=== PATIENT | male | born 1950 | race Caucasian/White ===

== ENCOUNTER → 2024-05-04 10:34 | Outpatient (REF) | payer MEDICARE, SELFPAY | LOC: RAD 10:34 | PROVIDERS: ATTENDING PHYSICIAN Family Medicine | DX: I70.90 Unspecified atherosclerosis (principal); R06.02 Shortness of breath | CPT/HCPCS: 93970 ==

== ENCOUNTER → 2024-05-30 13:49 | Outpatient (REF) | payer MEDICARE, SELFPAY | LOC: RAD 13:49 | PROVIDERS: ATTENDING PHYSICIAN Family Medicine | DX: I73.9 Peripheral vascular disease, unspecified (principal) | CPT/HCPCS: 93922; 93925 ==

== ENCOUNTER → 2024-07-19 12:42 | Outpatient (REF) | payer MEDICARE, SELFPAY | LOC: RAD 12:42 | PROVIDERS: ATTENDING PHYSICIAN Family Medicine; REFERRING PHYSICIAN Nuclear Medicine Nuclear Cardiology | DX: Z13.6 Encounter for screening for cardiovascular disorders (principal) | CPT/HCPCS: 75571 ==

== ENCOUNTER → 2024-08-07 13:40 | Outpatient (REF) | payer MEDICARE, SELFPAY | LOC: HWRCS 13:40 | PROVIDERS: ATTENDING PHYSICIAN Nuclear Medicine Nuclear Cardiology; FAMILY PHYSICIAN Family Medicine | DX: I10 Essential (primary) hypertension (principal); E78.2 Mixed hyperlipidemia; R06.02 Shortness of breath; I48.0 Paroxysmal atrial fibrillation; R93.1 Abnormal findings on diagnostic imaging of heart and coronary circulation | CPT/HCPCS: 93306 ==

== ENCOUNTER → 2024-08-13 08:11 | Outpatient (REF) | payer MEDICARE, SELFPAY | LOC: DHCBC/DCA 08:11 | PROVIDERS: ATTENDING PHYSICIAN Nuclear Medicine Nuclear Cardiology; FAMILY PHYSICIAN Family Medicine | DX: I10 Essential (primary) hypertension (principal); E78.2 Mixed hyperlipidemia; R06.02 Shortness of breath; I48.0 Paroxysmal atrial fibrillation; R93.1 Abnormal findings on diagnostic imaging of heart and coronary circulation | CPT/HCPCS: 78452; 93017; A9500 ==

== ENCOUNTER → 2024-11-13 10:28 | Outpatient (REF) | payer MEDICARE, SELFPAY | LOC: HWRAD 10:28 | PROVIDERS: ATTENDING PHYSICIAN Family Medicine | DX: R41.3 Other amnesia (principal) | CPT/HCPCS: 70450 ==

== ENCOUNTER → 2025-03-21 14:29 | Outpatient (REF) | payer MEDICARE, SELFPAY | LOC: PAVMRI 14:29 | PROVIDERS: ATTENDING PHYSICIAN Otolaryngology; FAMILY PHYSICIAN Family Medicine | DX: H90.A22 Sensorineural hearing loss, unilateral, left ear, with restricted hearing on the contralateral side (principal); H93.12 Tinnitus, left ear | CPT/HCPCS: 70553; A9575 ==

== ENCOUNTER → 2025-09-05 10:21 | Outpatient (REF) | payer MEDICARE, SELFPAY | LOC: HWRAD 10:21 | PROVIDERS: ATTENDING PHYSICIAN Family Medicine | DX: M79.671 Pain in right foot (principal); M54.2 Cervicalgia | CPT/HCPCS: 72050; 73630 ==

== ENCOUNTER 2025-09-28 17:16 | Emergency (ER) | payer MEDICARE, SELFPAY ==
[2025-09-28 17:19] VITALS: BP 158/78
--- NOTE | 2025-09-28 18:08 | ED.GENMED ---
History of Present Illness
General
Chief Complaint: Visual Problem
Source: patient
Exam Limitations: none
Time Seen by Provider: 09/28/25 17:36
Nursing documentation reviewed up to this point in time: agreed with
History of Present Illness
History of Present Illness:
Patient presents to ED secondary to intermittent episodes of flickers, described as 'reflection of glasses', along with streaking of lined versus lights, when looking through his right side. When he is looking to his left side or straight, patient
denies any symptoms. This has happened since yesterday, has become more frequent today. Denies headache. Denies dizziness. Denies blurry vision. Denies difficulty with speech. Denies loss of sensation or weakness. He denies pain, patient
states that the floaters that he usually experiences, appears to have gotten worse with bigger floaters over the past 24 hours. Denies previous history of similar symptoms. Of note, patient does report under emotional stress this afternoon, which
caused his blood pressure to go up, as he tends to verbalize when he becomes upset.
Past History
Past History
ED Past Medical History: Arrthythmia and Hyperthyroidism
ED Past Surgical History: None
Social History
Tobacco: Non-smoker
Personal:
Living: with family
Review of Systems
Review of Systems
Allergies reviewed?: Yes
All Other Systems: ROS reviewed and negative except as documented in HPI and ROS
Constitutional: Reports no symptoms
EENT: Reports no symptoms
Respiratory: Reports no symptoms
Cardiac: Reports no symptoms
ABD/GI: Reports no symptoms
Musculoskeletal: Reports no symptoms
Skin: Reports no symptoms
Neurological: Reports other (floaters/streaking line)
Phy Exam
Physical Exam
Physical Exam:
Physical Exam
General: no apparent distress, not acutely ill. afebrile
Head: nc/at. eomi. perrla
Neck: supple. normal range of motion.
Heart: s1/s2 regular rate and rhythm
Lungs: no acute respiratory distress. clear bilaterally
Abdomen: normal bowel sounds. not tender.
Neuro: alert and oriented x 3. no focal neurological deficits. normal speech. normal gait
Skin: no rash
Psychiatric: well kept. interactive and cooperative
Extremities: no edema. no calf tenderness.
Course
Vital Signs
Initial and Last Documented VS:
Initial Vital Signs
Temp Pulse Resp BP Pulse Ox
98.2 F 51 16 158/78 100
09/28/25 17:19 09/28/25 17:19 09/28/25 17:19 09/28/25 17:19 09/28/25 17:19
Last Documented Vital Signs
Temp Pulse Resp BP Pulse Ox
98.2 F 48 18 155/89 96
09/28/25 17:19 09/28/25 18:27 09/28/25 18:27 09/28/25 18:27 09/28/25 18:27
MDM/Problems Addressed
MDM/Problems Addressed:
Discussed findings with on-call neurology, , who does not feel that patient's presentation is currently for an acute CVA event. As such, does not feel stroke workup/evaluation is necessary at this time. Recommends an outpatient evaluation
with primary teaching assistant. As patient remains asymptomatic, after discussion, patient requesting to be discharged home and he will contact his primary teaching assistant, Dr. Lezama on Tuesday for reevaluation. Advised to return to ED with recurrent symptoms.
Patient otherwise is afebrile, neurovascular intact, at time of discharge to the care of his spouse.
*Pulse Oximetry
SaO2: 100
Oxygen Mode of Delivery: Room air
Patient hypoxic: no
*Critical Care Note
Total Time (30-74mins, 75-104mins- exclusive of procedures): Not Applicable
ED Attending Note
-
Portions of this chart may have been created with voice recognition software.� Occasional wrong word or��sound alike� substitutions may have occurred due to the inherent limitations of voice recognition software.
Discharge Plan
Departure
Patient Disposition: Home (Routine Discharge)
Date of Disposition: 09/28/25
Time of Disposition: 18:38
Patient with high blood pressure during this ER visit?: Yes
Condition: Good
Discharge Problem:
Visual disturbance
Instructions: Detached retina
Prescriptions:
No Action
Atenolol
25 mg PO BID
atorvastatin 10 MG tablet
10 mg PO QPM
aspirin 81 MG tablet,chewable
81 mg PO BID
Lovasa
2 tab PO BID
Referrals:
Bo Lezama MD [Active, Ophthalmology]
Activity Restrictions/Additional Instructions:
As discussed, please follow-up with your primary teaching assistant on Tuesday for reevaluation. Please consider return to ED with worsening symptoms.
Interventions
Interventions:
*Risk Screen - Suicide Last Done: 09/28/25 17:19
*Neglect/Abuse Screening Last Done: 09/28/25 17:19
*Nursing Disposition Last Done: 09/28/25 18:54
ED- Neurological Assessment Last Done: 09/28/25 18:28
ED-EENT Assessment Last Done: 09/28/25 18:29
ED Swallowing Screen Last Done: 09/28/25 18:34
Discharge Date and Time
Discharge Date/Time: 09/28/25 18:56
Print Language: YI
[2025-09-28 18:27] VITALS: BP 155/89
== END 2025-09-28 18:56 | disposition home or self-care (01) ==
LOC: EMR 17:16
PROVIDERS: EMERGENCY PHYSICIAN Emergency Medicine; FAMILY PHYSICIAN Family Medicine
DX: H53.8 Other visual disturbances (principal); R03.0 Elevated blood-pressure reading, without diagnosis of hypertension; E05.90 Thyrotoxicosis, unspecified without thyrotoxic crisis or storm; Z79.82 Long term (current) use of aspirin
CPT/HCPCS: 99282